=== PATIENT | male | born 1945 | race African-American/Black ===

== ENCOUNTER 2018-05-02 16:48 | Inpatient (IN) ==
[2018-05-02] MEDS ORDERED: VANCOMYCIN INJ 1,000 MG in SODIUM CHLORIDE 0.9% 250 ML IV STA (17:23)
[2018-05-02 18:35] LABS: Basophils % 0.3 % (0.0-0.8); Eosinophils # 0.1 10*3/uL (0.0-0.87); Eosinophils % 1.3 % (0.00-10.9); Hematocrit 29.4 VOL% (42.0-52.0); Hemoglobin 8.8 GM/DL (14.0-18.0); Immature Granulocytes % 0.8 %; Immature Granulocytes Absolute 0.06 #; Lymphocytes # 0.5 10*3/uL (1.4-4.0); Lymphocytes % 7.2 % (21.2-54.2); Mean Corpuscular HGB Conc 29.9 GM/DL (32-36); Mean Corpuscular Hemoglobin 27 PG (27-34); Mean Corpuscular Volume 90.5 FL (87-102); Mean Platelet Volume 10.2 FL (9.6-12.0); Monocytes # 0.7 10*3/uL (0.11-0.8); Neutrophils # 6.1 10*3/uL (1.4-7.4); Neutrophils % 81.4 % (38.7-73.9); Platelet Count 127 T/CUMM (130-400); Red Blood Count 3.25 MC/CUMM (3.8-5.5); Red Cell Distribution Width 19.8 % (9.3-17.3); White Blood Count 7.5 T/CUMM (4-12)
[2018-05-02 18:49] LABS: PT Patient Result 10.1 SECS
[2018-05-02 18:53] LABS: Lactic Acid 0.9 MMOL/L (0.4-2.0)
[2018-05-02 19:04] LABS: Alanine Aminotransferase 16 U/L (16-61); Albumin 2.9 G/DL (3.4-5.0); Alkaline Phosphatase 87 U/L (45-117); Aspartate Amino Transferase 35 U/L (0-37); Blood Urea Nitrogen 21 MG/DL (7-18); Calcium 9.5 MG/DL (8.5-10.1); Glucose 167 MG/DL (74-106); Osmolality,Calculated 285.4 MOS/KG (273-304); Potassium 3.6 MMOL/L (3.5-5.1); Sodium 140 MMOL/L (136-145); Total Protein 7.6 G/DL (6.4-8.3)
[2018-05-02 19:07] LABS: Troponin I 0.081 NG/ML (0.00-0.045)
[2018-05-02 19:40] LABS: Sedimentation Rate-Westergren 97 MM/HR (0-20)
[2018-05-02] MEDS ORDERED: GLUCAGON 1 MG VIAL IM PRN (21:23)
[2018-05-02] MEDS ORDERED: DEXTROSE 50% 25 GM/50 ML VIAL IV PRN (21:23)
[2018-05-02] MEDS ORDERED: ONDANSETRON 4 MG/2 ML VIAL IV PRN (21:23)
[2018-05-02] MEDS ORDERED: ACETAMINOPHEN 325 MG TABLET PO PRN (21:23)
[2018-05-02] MEDS ORDERED: VANCOMYCIN INJ 500 MG in SODIUM CHLORIDE 0.9% 100 ML IV ONE (22:30)
[2018-05-02] MEDS ORDERED: VANCOMYCIN INJ 500 MG in SODIUM CHLORIDE 0.9% 100 ML IV PRN (23:50)
[2018-05-02 23:51] LABS: Troponin I 0.084 NG/ML (0.00-0.045)
[2018-05-03] MEDS: CARVEDILOL 6.25 MG TABLET PO SCH ×3 (01:14→22:53)
[2018-05-03 05:02] LABS: Basophils % 0.4 % (0.0-0.8); Eosinophils # 0.1 10*3/uL (0.0-0.87); Eosinophils % 1.2 % (0.00-10.9); Hematocrit 26.3 VOL% (42.0-52.0); Hemoglobin 8.1 GM/DL (14.0-18.0); Immature Granulocytes % 0.4 %; Immature Granulocytes Absolute 0.03 #; Lymphocytes # 0.8 10*3/uL (1.4-4.0); Lymphocytes % 9.8 % (21.2-54.2); Mean Corpuscular HGB Conc 30.8 GM/DL (32-36); Mean Corpuscular Hemoglobin 27 PG (27-34); Mean Corpuscular Volume 88.6 FL (87-102); Mean Platelet Volume 10.6 FL (9.6-12.0); Monocytes # 0.9 10*3/uL (0.11-0.8); Monocytes % 11.7 % (1.7-12.7); Neutrophils % 76.5 % (38.7-73.9); Platelet Count 120 T/CUMM (130-400); Red Blood Count 2.97 MC/CUMM (3.8-5.5); Red Cell Distribution Width 19.3 % (9.3-17.3); White Blood Count 7.8 T/CUMM (4-12)
[2018-05-03 05:29] LABS: Hypochromasia 1+; Ovalocytes Slight
[2018-05-03 05:49] LABS: Troponin I 0.095 NG/ML (0.00-0.045)
[2018-05-03 06:52] LABS: % Iron Saturation 12.2 % (18-50); Ferritin 1247.2 ng/ml (26-388)
[2018-05-03 07:05] LABS: Folate > 24.0 NG/ML (5.4-24.0); Vitamin B12 802 PG/ML (211-911)
[2018-05-03] MEDS: FOLIC ACID 1 MG TABLET PO SCH (08:19)
[2018-05-03] MEDS: CYPROHEPTADINE 4 MG TABLET PO SCH ×2 (08:19→17:00)
[2018-05-03] MEDS: SEVELAMER CARBONATE 800 MG TABLET PO SCH ×3 (08:19→16:59)
[2018-05-03] MEDS: MULTIVITAMIN (BEROCCA) TABLET PO SCH (08:19)
[2018-05-03] MEDS: ASPIRIN EC 81 MG TABLET PO SCH (08:19)
[2018-05-03] MEDS: TAMSULOSIN 0.4 MG CAPSULE PO SCH (08:19)
[2018-05-03] MEDS: AMITRIPTYLINE 25 MG TABLET PO SCH (08:19)
[2018-05-03] MEDS: FERROUS SULFATE 325 MG TABLET PO SCH (08:19)
[2018-05-03] MEDS: INSULIN LISPRO 100 UNIT/ML SUBCUT SCH ×2 (10:08→17:00)
[2018-05-03 10:49] LABS: Troponin I 0.104 NG/ML (0.00-0.045)
[2018-05-03] MEDS: FLUTICASONE 50 MCG NASAL SPRAY 16 GM BOTTLE BOTH NARES SCH (17:00)
[2018-05-03] MEDS ORDERED: INSULIN GLARGINE 100 UNIT/ML SUBCUT SCH (21:00)
[2018-05-04 04:22] LABS: Basophils % 0.3 % (0.0-0.8); Eosinophils # 0.1 10*3/uL (0.0-0.87); Eosinophils % 0.7 % (0.00-10.9); Hematocrit 27.6 VOL% (42.0-52.0); Hemoglobin 8.4 GM/DL (14.0-18.0); Immature Granulocytes % 0.5 %; Immature Granulocytes Absolute 0.06 #; Lymphocytes % 8.7 % (21.2-54.2); Mean Corpuscular HGB Conc 30.4 GM/DL (32-36); Mean Corpuscular Hemoglobin 27 PG (27-34); Mean Platelet Volume 10.6 FL (9.6-12.0); Monocytes # 1.2 10*3/uL (0.11-0.8); Monocytes % 10.3 % (1.7-12.7); Neutrophils # 9.2 10*3/uL (1.4-7.4); Neutrophils % 79.5 % (38.7-73.9); Platelet Count 159 T/CUMM (130-400); Red Cell Distribution Width 19.5 % (9.3-17.3); White Blood Count 11.6 T/CUMM (4-12)
[2018-05-04 04:39] LABS: Calcium 9.4 MG/DL (8.5-10.1); Osmolality,Calculated 289.4 MOS/KG (273-304)
[2018-05-04] MEDS: INSULIN LISPRO 100 UNIT/ML SUBCUT SCH ×2 (07:57→16:21)
[2018-05-04] MEDS ORDERED: SENNA 8.6 MG TABLET PO SCH (08:00)
[2018-05-04 08:12] LABS: Albumin 2.6 G/DL (3.4-5.0); Calcium 9.4 MG/DL (8.5-10.1); Osmolality,Calculated 296.3 MOS/KG (273-304)
[2018-05-04] MEDS: MULTIVITAMIN (BEROCCA) TABLET PO SCH (08:50)
[2018-05-04] MEDS: ASPIRIN EC 81 MG TABLET PO SCH (08:50)
[2018-05-04] MEDS: AMITRIPTYLINE 25 MG TABLET PO SCH (08:50)
[2018-05-04] MEDS: FERROUS SULFATE 325 MG TABLET PO SCH (08:50)
[2018-05-04] MEDS: FLUTICASONE 50 MCG NASAL SPRAY 16 GM BOTTLE BOTH NARES SCH ×2 (08:50→16:21)
[2018-05-04] MEDS: TAMSULOSIN 0.4 MG CAPSULE PO SCH (08:50)
[2018-05-04] MEDS: FOLIC ACID 1 MG TABLET PO SCH (08:50)
[2018-05-04] MEDS: SEVELAMER CARBONATE 800 MG TABLET PO SCH ×3 (08:50→16:31)
[2018-05-04] MEDS: CYPROHEPTADINE 4 MG TABLET PO SCH ×2 (08:50→16:21)
[2018-05-04] MEDS: CARVEDILOL 6.25 MG TABLET PO SCH (08:51)
[2018-05-04] MEDS ORDERED: MONTELUKAST 10 MG TABLET PO SCH (09:00)
[2018-05-04] MEDS ORDERED: SKIN HEALING OINT (AQUAPHOR) 50 GM TUBE TOP PRN (09:02)
[2018-05-04] MEDS ORDERED: CHLORHEXIDINE 4% SOLN 118 ML BOTTLE TOP ONE (09:02)
[2018-05-04 12:32] VITALS: BP 136/76
[2018-05-04] MEDS ORDERED: VANCOMYCIN INJ 500 MG in SODIUM CHLORIDE 0.9% 100 ML IV ONE (16:00)
== END 2018-05-04 18:51 | DRG 871 ==
LOC: EDBD → EDUNIT# → N.ED 16:48 → SUATTDRO 20:22 → N.EDINP 20:22 → N.5E 20:46
PROVIDERS: ADMIT Family Medicine; ATTEND Internal Medicine

== ENCOUNTER 2018-06-15 11:49 | Observation (INO) ==
[2018-06-15 12:56] LABS: Basophils % 0.2 % (0.0-0.8); Eosinophils # 0.1 10*3/uL (0.0-0.87); Eosinophils % 0.7 % (0.00-10.9); Hemoglobin 6.5 GM/DL (14.0-18.0); Immature Granulocytes % 1.3 %; Immature Granulocytes Absolute 0.17 #; Lymphocytes # 1.1 10*3/uL (1.4-4.0); Lymphocytes % 8.5 % (21.2-54.2); Mean Corpuscular Hemoglobin 27 PG (27-34); Mean Corpuscular Volume 87.1 FL (87-102); Mean Platelet Volume 10.1 FL (9.6-12.0); Monocytes # 0.9 10*3/uL (0.11-0.8); Monocytes % 6.9 % (1.7-12.7); Neutrophils # 10.6 10*3/uL (1.4-7.4); Neutrophils % 82.4 % (38.7-73.9); Platelet Count 243 T/CUMM (130-400); Red Blood Count 2.41 MC/CUMM (3.8-5.5); Red Cell Distribution Width 18.4 % (9.3-17.3); White Blood Count 12.8 T/CUMM (4-12)
[2018-06-15 13:30] LABS: Albumin 2.1 G/DL (3.4-5.0); Calcium 9.7 MG/DL (8.5-10.1); Osmolality,Calculated 301.5 MOS/KG (273-304); Potassium 5.1 MMOL/L (3.5-5.1); Total Protein 6.9 G/DL (6.4-8.3)
[2018-06-15] MEDS ORDERED: LACTULOSE 20 GM/30 ML UDCUP PO PRN (15:25)
[2018-06-15] MEDS ORDERED: SODIUM CHLORIDE 0.9% 1,000 ML IV PRN (15:25)
[2018-06-15] MEDS ORDERED: DOCUSATE SODIUM 100 MG CAPSULE PO PRN (15:25)
[2018-06-15] MEDS ORDERED: GLUCAGON 1 MG VIAL IM PRN (15:31)
[2018-06-15] MEDS ORDERED: DEXTROSE 50% 25 GM/50 ML VIAL IV PRN (15:31)
[2018-06-15] MEDS: INSULIN LISPRO 100 UNIT/ML SUBCUT SCH ×2 (18:06→20:48)
[2018-06-16 05:48] LABS: Calcium 9.8 MG/DL (8.5-10.1); Osmolality,Calculated 301.4 MOS/KG (273-304); Potassium 4.5 MMOL/L (3.5-5.1); Thyroid Stimulating Hormone 1.22 uIU/ml (0.358-3.74)
[2018-06-16 08:08] LABS: Basophils % 0.2 % (0.0-0.8); Eosinophils # 0.1 10*3/uL (0.0-0.87); Eosinophils % 1.2 % (0.00-10.9); Immature Granulocytes % 1.3 %; Immature Granulocytes Absolute 0.14 #; Lymphocytes # 1.5 10*3/uL (1.4-4.0); Lymphocytes % 13.8 % (21.2-54.2); Mean Corpuscular HGB Conc 30.7 GM/DL (32-36); Mean Corpuscular Hemoglobin 26 PG (27-34); Mean Corpuscular Volume 85.1 FL (87-102); Mean Platelet Volume 10.7 FL (9.6-12.0); Monocytes # 0.9 10*3/uL (0.11-0.8); Neutrophils # 8.1 10*3/uL (1.4-7.4); Neutrophils % 75.5 % (38.7-73.9); Platelet Count 217 T/CUMM (130-400); Red Blood Count 1.95 MC/CUMM (3.8-5.5); Red Cell Distribution Width 18.3 % (9.3-17.3); White Blood Count 10.8 T/CUMM (4-12)
[2018-06-16 08:12] LABS: Hemoglobin 5.1 GM/DL (14.0-18.0)
[2018-06-16 08:13] LABS: Hematocrit 16.6 VOL% (42.0-52.0)
[2018-06-16] MEDS: INSULIN LISPRO 100 UNIT/ML SUBCUT SCH ×4 (08:42→20:01)
[2018-06-16] MEDS: PANTOPRAZOLE 40 MG TABLET PO SCH (11:18)
[2018-06-16 20:20] LABS: Hematocrit 24.2 VOL% (42.0-52.0)
[2018-06-16 20:24] LABS: Hemoglobin 7.6 GM/DL (14.0-18.0)
[2018-06-17 05:37] LABS: Calcium 9.9 MG/DL (8.5-10.1); Osmolality,Calculated 305.4 MOS/KG (273-304); Potassium 4.7 MMOL/L (3.5-5.1)
[2018-06-17 05:40] LABS: Basophils % 0.3 % (0.0-0.8); Eosinophils # 0.2 10*3/uL (0.0-0.87); Eosinophils % 1.9 % (0.00-10.9); Hematocrit 24.9 VOL% (42.0-52.0); Hemoglobin 7.9 GM/DL (14.0-18.0); Immature Granulocytes % 1.5 %; Immature Granulocytes Absolute 0.14 #; Lymphocytes # 1.1 10*3/uL (1.4-4.0); Mean Corpuscular HGB Conc 31.7 GM/DL (32-36); Mean Corpuscular Hemoglobin 27 PG (27-34); Mean Corpuscular Volume 83.8 FL (87-102); Monocytes # 0.6 10*3/uL (0.11-0.8); Monocytes % 6.8 % (1.7-12.7); Neutrophils # 7.3 10*3/uL (1.4-7.4); Neutrophils % 77.5 % (38.7-73.9); Platelet Count 205 T/CUMM (130-400); Red Blood Count 2.97 MC/CUMM (3.8-5.5); Red Cell Distribution Width 16.8 % (9.3-17.3); White Blood Count 9.5 T/CUMM (4-12)
[2018-06-17] MEDS: INSULIN LISPRO 100 UNIT/ML SUBCUT SCH ×4 (08:14→20:00)
[2018-06-17] MEDS: PANTOPRAZOLE 40 MG TABLET PO SCH ×2 (09:26)
[2018-06-17 20:58] VITALS: BP 135/70
== END 2018-06-17 20:20 ==
LOC: EDUNIT# → N.EDINP 11:49 → N.ED 11:49 → SUATTDRO 15:23 → N.EDINP 16:46 → N.3E 17:14
PROVIDERS: ADMIT Internal Medicine; ATTEND Internal Medicine